=== PATIENT | male | born 1950 | race Caucasian/White ===

== ENCOUNTER 2020-11-06 13:40 | Outpatient (CLI) | payer MEDICARE, SELFPAY ==
--- NOTE | 2020-11-06 13:46 | ECHO_ITS ---
Patient Info Name: Yohannes Poole Age: 70 years : 1950 Gender: Male Ht: 72 in Wt: 210 lbs BSA: 2.22 m2 HR: 78 bpm BP: 141 / 73 mmHg Technical Quality: Fair Exam Date: 11/06/2020 2:15 PM Exam Location: [facility] Pulmonary Patient Status: Outpatient Admit Date: 11/06/2020 Staff Ordering Physician: Kirk Mcconnell PA-C Business Analytics Specialist: Brenda Sultana RDCS Attending Provider: Kirk Mcconnell PA-C Referring Physician: Jayesh CARVALHO; Exam Type: CA echo doppler color flow Study Info Indications R06.02 - Shortness of breath Complete two-dimentional, color flow and Doppler transthoracic echocardiogram is performed with agitated saline and with contrast to opacify the left ventricle and to improve the delineation of the left ventricle endocardial borders. Complete two-dimensional, color flow and Doppler transthoracic echocardiogram is performed. Summary 1. Complete two-dimensional, color flow and Doppler transthoracic echocardiogram is performed. 2. Left ventricular chamber dimension is normal. 3. Left ventricular systolic function is normal, estimated at 60-65%. 4. The left ventricular diastolic function is grade I diastolic dysfunction. 5. E/e' 7 is minimally elevated. 6. Right atrial chamber dimension is mildly enlarged. 7. There is mild aortic valve sclerosis. 8. There is trace tricuspid valve regurgitation. 9. No pulmonary hypertension, estimated pulmonary arterial systolic pressure is 29 mmHg. Left Ventricle E/e' 7 is minimally elevated. Left ventricular chamber dimension is normal. Left ventricular systolic function is normal, estimated at 60-65%. The left ventricular diastolic function is grade I diastolic dysfunction. Right Ventricle Right ventricular chamber dimension is normal. Right ventricular systolic function is normal. Left Atria Left atrial chamber dimension is normal. Right Atria Right atrial chamber dimension is mildly enlarged. Aortic Valve The aortic valve is trileaflet. There is mild aortic valve sclerosis. There is no aortic valve stenosis. There is no aortic valve regurgitation. Pulmonic Valve There is no pulmonic regurgitation. Mitral Valve There is no mitral valve stenosis. There is no mitral valve regurgitation. Tricuspid Valve There is trace tricuspid valve regurgitation. No pulmonary hypertension, estimated pulmonary arterial systolic pressure is 29 mmHg. Pericardium/Pleural There is no pericardial effusion. Inferior Vena Cava Normal inferior vena cava with >50% collapse upon inspiration consistent with normal right atrial pressure, 5 mmHg. Aorta The aortic root size at the sinus of Valsalva is normal. Left Ventricular Outflow Tract Name Value Normal LVOT 2D LVOT Diameter 2.1 cm LVOT Doppler LVOT Peak Gradient 5 mmHg LVOT Mean Gradient 3 mmHg LVOT VTI 22 cm LVOT VTI/AV VTI Ratio 1.0 LVOT Stroke Volume 75 ml LVOT CO 15.7 l/min LVOT CI
== END 2020-11-06 13:41 | disposition home or self-care (01) ==
PROVIDERS: PCP Family Medicine; Visit Provider Physician Assistant
DX: R06.02 Shortness of breath (principal); I50.22 Chronic systolic (congestive) heart failure; I11.0 Hypertensive heart disease with heart failure; E03.8 Other specified hypothyroidism; F33.1 Major depressive disorder, recurrent, moderate; R73.03 Prediabetes; I35.8 Other nonrheumatic aortic valve disorders
CPT/HCPCS: 93306

== ENCOUNTER 2021-10-03 15:17 | Emergency (ER) | payer MEDICARE, OTHER, SELFPAY ==
--- NOTE | ~2021-10-03 | XR_ITS ---
EXAMINATION: XR chest 1V portable DATE: 10/03/2021 15:38 INDICATION: Cough TECHNIQUE: frontal view of the chest was obtained. COMPARISON: Chest CT dated 07/16/2017 FINDINGS: Mild increased prominence of the bronchovascular pattern in the lower lung zone with bilateral perihi lar bronchial wall thickening which could be seen with bronchitis. No focal airspace opacities, pleur al effusion or pneumothorax. The cardiomediastinal silhouette is normal. A few old left-sided rib fra ctures. IMPRESSION: 1. Bronchial wall thickening without focal airspace opacities which could be seen with bronchitis or less likely mild pulmonary edema. Reviewed, dictated and finalized at location A. IMPRESSION: 1. Bronchial wall thickening without focal airspace opacities which could be se en with bronchitis or less likely mild pulmonary edema.
[2021-10-03 15:28] VITALS: BP 133/90; PULSE 85; RESP 18; TEMP 36.5; O2SAT 98
--- NOTE | 2021-10-03 15:28 | ECG_ITS ---
Measurements Intervals [place] Rate: 78 P: 75 NH: 222 QRS: 56 QRSD: 82 T: 59 QT: 375 QTc: 427 Interpretive Statements REDUCED DATA QUALITY WITH BASELINE ARTIFACT SINUS RHYTHM WITH FIRST DEGREE AV BLOCK WITH OCCASIONAL SUPRAVENTRICULAR PREMATURE COMPLEXES NO PREVIOUS ECG AVAILABLE FOR COMPARISON Electronically Signed On 10-03-2021 16:37:54 CDT by Tito Wall M.D.
[2021-10-03 15:59] VITALS: O2SAT 98
[2021-10-03 16:16] LABS: Basophils Absolute Auto 0.1 K/mm3 (0.0-0.1); Basophils Percent Auto 1.4 % (0.2-1.2); Eosinophils Absolute Auto 0.5 K/mm3 (0-0.3); Eosinophils Percent Auto 6.3 % (0-4.4); Hematocrit 44.9 % (42.0-52.0); Hemoglobin 15.3 g/dL (14.0-18.0); Immature Granulocyte Absolute 0.06 K/mm3 (0.00-0.031); Immature Granulocyte Percent A 0.8 % (0-0.5); Lymphocytes Absolute Auto 0.67 K/mm3 (0.9-3.2); Lymphocytes Percent Auto 8.6 % (18.3-44.2); Mean Corpuscular HGB Conc 34.1 g/dl (32-36); Mean Corpuscular Hemoglobin 37.5 pg (26-34); Mean Platelet Volume 9.9 fl (7.4-10.4); Monocytes Absolute Auto 0.7 K/mm3 (0.1-0.6); Monocytes Percent Auto 8.8 % (2.6-8.5); Neutrophils Absolute Auto 5.8 K/mm3 (1.3-6.7); Neutrophils Percent Auto 74.1 % (45.5-73.1); Platelet Count Result 212 k/mm3 (150-375); Prothrombin Time 12.3 Seconds (11.1-14.7); Red Blood Count 4.08 M/mm3 (4.6-6.20); Red Cell Distribution Width 14.3 % (11.5-14.5); White Blood Count 7.8 K/mm3 (4.5-10.0)
[2021-10-03 16:17] LABS: Partial Thromboplastin Time 21.9 SECONDS (22.3-36.8)
[2021-10-03 16:24] LABS: Alanine Aminotransferase 10 U/L (6-50); Albumin Level 4.3 g/dL (3.5-5.1); Alkaline Phosphatase 158 U/L (38-126); Anion Gap 11 mmol/L (8-16); Aspartate Amino Transferase 29 U/L (17-59); Bilirubin,Total 0.8 mg/dL (0.2-1.3); Blood Urea Nitrogen 27 mg/dL (9-20); Calcium 9.1 mg/dL (8.4-10.2); Carbon Dioxide 28 mmol/L (22-30); Chloride 97 mmol/L (98-107); Estimated CRCL calculation 59 ml/min; Estimated Glomerular Filt Rate 60; Glucose 132 mg/dL (65-110); Potassium 3.5 mmol/L (3.4-5.0); Sodium 136 mmol/L (137-145)
[2021-10-03 16:35] LABS: NT Pro B Type Natriuretic Pept 110 pg/mL (5-100); Troponin I < 0.012 ng/mL (0.000-0.034)
--- NOTE | 2021-10-03 16:38 | ED.GENADULT ---
HPI - General Adult General Chief complaint: Shortness of Breath/Dyspnea Stated complaint: SOB Time Seen by Provider: 10/03/21 15:57 History of Present Illness HPI narrative: 8-year-old male with past medical history of hypertension, gout, chronic shortness of breath presents for evaluation of worsening shortness of breath since it became hot this summer. Patient states that he will sometimes use a rescue inhaler that he borrowed from a family member. This does provide temporary relief. Today he was concerned that the inhaler would not help and therefore came to the emergency department. He denies chest pain, fever, sick contacts. Related Data Allergies Allergy/AdvReac Type Severity Reaction Status Date / Time neomycin Allergy Unknown Skin Verified 09/23/21 09:47 Reaction Review of Systems Review of Systems: CONSTITUTIONAL: Denies fever, chills, or sweats. EYES: Denies visual changes, redness, or discharge. ENT: Denies rhinorrhea, congestion, sore throat, or otalgia. CARDIOVASCULAR: Denies chest pain, palpitations, or edema. RESPIRATORY: Denies cough or dyspnea. GASTROINTESTINAL: Denies abdominal pain, nausea, vomiting, or diarrhea. GENITOURINARY: Denies dysuria or hematuria. SKIN: Denies rash or itching. MUSCULOSKELETAL: Denies back pain, joint pain, or myalgia. NEUROLOGIC: Denies headache, numbness, or weakness. PSYCHIATRIC: Denies anxiety or depression. PMFSH Past Medical History Medical History Encounter for screening colonoscopy (~2014) Surgical History Surgical History H/O hernia repair (~1998) Hx of cholecystectomy (~1995) Family History Family History Mother Family history of Alzheimer's disease Father Family history of malignant neoplasm of brain, Onset Age: 60 Other Malignant neoplasm of prostate Social History Social History Smoking status: Former smoker Alcohol intake: current Exam Narrative: GENERAL: Well-appearing, well-nourished, and in no acute distress. HEAD: Normocephalic, atraumatic. EYES: PERRLA and EOMI. ENT: Nares clear, no rhinorrhea or epistaxis. Mucous membranes moist. NECK: Supple. CHEST: expiratory wheeze in all rivera. No respiratory distress. HEART: Regular rate and rhythm. No murmur heard. Normal peripheral pulses. ABDOMEN: Soft, nontender, nondistended, normal active bowel sounds. EXTREMITIES: Normal range of motion. No edema. SKIN: Warm, dry, no rash. NEURO: No focal deficits. Alert and oriented x3. PSYCH: Normal mood and affect. Course Vital Signs Vital signs: Vital Signs Temperature 97.7 F 10/03/21 15:28 Pulse Rate 85 10/03/21 15:28 Respiratory Rate 18 10/03/21 15:28 Blood Pressure 133/90 10/03/21 15:28 Pulse Oximetry 98 10/03/21 15:28 Oxygen Delivery Nasal Cannula 10/03/21 15:28 Oxygen Flow Rate 4 10/03/21 15:28 Temperature 97.7 F 10/03/21 15:28 Pulse Rate 86 10/03/21 17:59 Respiratory Rate 23 H 10/03/21 17:59 Blood Pressure 126/82 10/03/21 17:59 Pulse Oximetry 94 10/03/21 17:59 Oxygen Delivery Room Air 10/03/21 17:59 Oxygen Flow Rate 4 10/03/21 15:59 Medical Decision Making [facility] Narrative Medical decision making narrative: 8-year-old male past medical history of hypertension and likely COPD due to smoking history throughout most of his adult life. Presents for worsening shortness of breath over the past 2 to 3 months. Expiratory wheeze noted in all rivera on arrival. EMS has reported that patient was hypoxic on arrival but he has an O2 sat in the mid to high 90s at all times in our department when there is a good waveform. Of note it is difficult to get a good waveform and patient does have a decreased O2 saturation that corresponds with poor interpretation of th
[2021-10-03 16:40] LABS: Macrocytosis 1+ (NORMAL); Platelet Estimate Adequate (Adequate)
[2021-10-03 16:41] LABS: Stomatocytes 1+ (NORMAL)
[2021-10-03] MEDS: ALBUTEROL SULFATE NEB 2.5 MG/3 ML INH 5 MG INHALATION (16:54)
[2021-10-03] MEDS: IPRATROPIUM BR 0.02% INH SOLN 0.5 MG/2.5 ML VIAL INHALATION (16:54)
[2021-10-03 16:58] VITALS: PULSE 73; RESP 18
[2021-10-03 17:01] LABS: SARS-CoV-2 RNA PCR Negative
[2021-10-03 17:08] VITALS: BP 135/80; PULSE 81; RESP 18; O2SAT 99
[2021-10-03 17:29] VITALS: PULSE 81; RESP 20
[2021-10-03 17:59] VITALS: BP 126/82; PULSE 86; RESP 23; O2SAT 94
== END 2021-10-03 18:01 | disposition home or self-care (01) ==
PROVIDERS: Emergency Medicine; Emergency Provider Emergency Medicine; PCP Family Medicine
DX: J45.901 Unspecified asthma with (acute) exacerbation (principal); Z20.822 Contact with and (suspected) exposure to COVID-19; I10 Essential (primary) hypertension; M10.9 Gout, unspecified; Z87.891 Personal history of nicotine dependence
CPT/HCPCS: 36415; 71045; 80053; 83880; 84484; 85025; 85610; 85730; 93005; 94640; 96374; 99284; C9803; J1100; U0003; U0005

== ENCOUNTER 2021-11-12 09:11 | Outpatient (CLI) | payer MEDICARE, OTHER, SELFPAY ==
--- NOTE | 2021-11-12 09:44 | ECHO_ITS ---
Patient Info Name: Yohannes Poole Age: 71 years : 1950 Gender: Male Ht: 74 in Wt: 205 lbs BSA: 2.21 m2 HR: 74 bpm BP: 129 / 80 mmHg Heart Rhythm: Sinus Rhythm Exam Date: 11/12/2021 10:20 AM Exam Location: [facility] Pulmonary Patient Status: Outpatient Admit Date: 11/12/2021 Staff Ordering Physician: Margo Camarlilo MD Anesthesia Technician: Abbi Louise RDCS Attending Provider: Margo Camarillo MD Referring Physician: Marquise CRABTREE; Exam Type: CA echo doppler color flow Study Info Indications R06.02 - Shortness of breath Complete two-dimensional, color flow and Doppler transthoracic echocardiogram is performed. Summary 1. Complete two-dimensional, color flow and Doppler transthoracic echocardiogram is performed. 2. Left ventricular chamber dimension is normal. 3. Left ventricular systolic function is normal, estimated at 65-70%. 4. There is no increased left ventricular wall thickness. 5. The left ventricular diastolic function is grade I diastolic dysfunction. 6. Right atrial chamber dimension is mildly enlarged. 7. There is no mitral valve regurgitation. 8. There is no aortic valve stenosis. Left Ventricle Left ventricular chamber dimension is normal. Left ventricular systolic function is normal, estimated at 65-70%. There is no increased left ventricular wall thickness. The left ventricular diastolic function is grade I diastolic dysfunction. Right Ventricle Right ventricular chamber dimension is normal. Right ventricular systolic function is normal. Left Atria Left atrial chamber dimension is normal. Right Atria Right atrial chamber dimension is mildly enlarged. Aortic Valve The aortic valve is not well visualized. There is no aortic valve stenosis. There is no aortic valve regurgitation. Pulmonic Valve The pulmonic valve is not well visualized. Mitral Valve The mitral valve has normal leaflets. There is no mitral valve regurgitation. Tricuspid Valve The tricuspid valve leaflets are normal. There is trace tricuspid valve regurgitation. Unable to estimate PA systolic pressure due to poor spectral resolution of tricuspid regurgitant jet velocity. Pericardium/Pleural The pericardium appears normal. There is no pericardial effusion. Inferior Vena Cava Normal inferior vena cava with >50% collapse upon inspiration consistent with normal right atrial pressure, 5 mmHg. Aorta The aortic root size at the sinus of Valsalva is normal. Left Ventricular Outflow Tract Name Value Normal LVOT 2D LVOT Diameter 2.2 cm LVOT Doppler LVOT Peak Gradient 2 mmHg LVOT Mean Gradient 1 mmHg LVOT VTI 13 cm LVOT VTI/AV VTI Ratio 0.7 LVOT Stroke Volume 47 ml LVOT CO 4.4 l/min LVOT CI 2.0 l/min/m2 Mitral Valve Name Value Normal
--- NOTE | 2021-11-13 10:26 | WPDPFTINT ---
PFT Procedure Performed PFT Procedure Performed Spirometry with Pre/Post Bronchodilator Plethysmography (Lung Vol) Diffusing Cap (DLCO) Flow Vol Loop PFT Interpretation Lung volumes were measured with the body plethysmography method. The elevated residual volume could be due to air trapping. The remaining lung volumes are unremarkable. Spirometry showed diminished expiratory flow rates and a diminished FEV1 to FVC ratio 46%, indicative of obstructive airway disease. Following administration of a bronchodilator there was significant increase in the forced vital capacity. Lung diffusion capacity is moderately reduced at 60% predicted. The flow volume loop is consistent with obstructive airway disease. Impression: Moderately severe obstructive airway disease with evidence of air trapping and significant response to bronchodilators. Moderately reduced lung diffusion capacity.
== END 2021-11-12 09:12 | disposition home or self-care (01) ==
LOC: ANHPFT 09:13
PROVIDERS: PCP Family Medicine; Visit Provider Family Medicine
DX: R06.02 Shortness of breath (principal); I25.10 Atherosclerotic heart disease of native coronary artery without angina pectoris; F10.29 Alcohol dependence with unspecified alcohol-induced disorder; R94.2 Abnormal results of pulmonary function studies; I34.0 Nonrheumatic mitral (valve) insufficiency
CPT/HCPCS: 93306; 94060; 94726; 94729

== ENCOUNTER 2021-11-13 01:00 | Day surgery (SDC) | payer MEDICARE, OTHER, SELFPAY ==
[2021-10-30 13:30] VITALS: BMI 26.4
--- NOTE | 2021-11-12 10:20 | WPDANESEPPF ---
Anes - Initial Pre Proc Eval Procedure: Operation Date: 11/13/21 09:30 Proposed Procedures p Screening Colonoscopy - Júnior Bonilla MD Date/Time: 11/12/21 10:20 Surgeon: Júnior Bonilla MD Pre Op Diagnosis: hx colon polyps Patient Data Age: 71 Gender: M Height: 1.88 m Weight: 93.5 kg Allergies Allergy/AdvReac Type Severity Reaction Status Date / Time No Known Allergies Allergy Verified 11/13/21 08:20 Home Medications Medication Instructions Recorded Confirmed Type allopurinol 100 mg tablet See Rx Instructions .Route 03/05/21 11/13/21 Rx .COMPLEX #30 tabs levothyroxine 50 mcg tablet See Rx Instructions .Route 03/17/21 11/13/21 Rx .COMPLEX #90 tabs lisinopril 10 mg tablet See Rx Instructions .Route 07/25/21 11/13/21 Rx .COMPLEX #90 tabs hydrochlorothiazide 12.5 mg tablet See Rx Instructions .Route 08/22/21 11/13/21 Rx .COMPLEX #90 tabs albuterol sulfate 90 mcg/actuation 2 inh inhalation Q6H #1 ea 10/03/21 11/13/21 Rx breath activated powder inhaler,sensor fluticasone propionate 50 1 spray intranasal DAILY #16 grams 10/03/21 11/13/21 Rx mcg/actuation nasal spray,suspension (Flonase Allergy Relief) cephalexin 500 mg capsule 500 mg PO Q8H #30 caps 10/20/21 11/13/21 Rx fluticasone fur. 200 mcg-umeclid 1 inh inhalation Q24H #60 ea 10/20/21 11/13/21 Rx 62.5 mcg-vilant 25 mcg inhalat.powder (Trelegy Ellipta) venlafaxine 150 mg See Rx Instructions .Route 10/20/21 11/13/21 Rx capsule,extended release 24 hr .COMPLEX #90 caps Patient hx anesthesia problems: none Family hx anesthesia problems: none Results Review: All pre-operative results and documents have been reviewed as part of the pre-operative evaluation. [facility] Past Medical History Medical History (Updated 11/13/21 @ 10:52 by Margo Camarillo MD) COPD (chronic obstructive pulmonary disease) Coronary artery disease Dyslipidemia Encounter for screening colonoscopy (~2014) Essential (primary) hypertension Hypothyroidism, unspecified Prediabetes Unspecified atrial fibrillation Surgical History Surgical History H/O hernia repair (~1998) Hx of cholecystectomy (~1995) Family History Family History Mother Family history of Alzheimer's disease Father Family history of malignant neoplasm of brain, Onset Age: 60 Other Malignant neoplasm of prostate Social History Social History Smoking status: Former smoker Tobacco type: cigarettes Alcohol intake: current Drinks per week: 8 Living arrangements: alone Spiritual care concerns: No Anes - Eval Final PreProcedure Day of Procedure 11/12/21 10:20 Patient weight: overweight Heart: regular rate and rhythm Lungs: clear to auscultation Airway: Mallampati scale class II Neurological: alert and oriented Last oral intake: >/= 8 hours ASA classification: III Emergent: no Anesthetic plan: proceed Anesthesia type and monitoring: general GIVS and standard monitoring Results Review: All pre-operative results and documents have been reviewed as part of the pre-operative evaluation. Informed Consent: The patient's anesthetic plan and its attendant risks and benefits were discussed with the patient/family/POA. Questions were solicited and answers provided to the satisfaction of the patient/family/POA.
[2021-11-13 08:21] VITALS: BP 111/85; PULSE 88; RESP 18; TEMP 36.3; O2SAT 95
[2021-11-13] MEDS: LACTATED RINGERS 1,000 ML 150 ML IV CONT (08:25)
--- NOTE | 2021-11-13 08:59 | PM.IMHP ---
H&P: HPI History of Present Illness Date/Time: 11/13/21 08:59 Chief Complaint: History of colon polyps. Narrative: This is a 71-year-old white male patient presents for screening colonoscopy. Patient's current weight appetite and bowel movements are normal. He denies abdominal pain. Patient has had several prior colonoscopies with colon polyps. Most recent exam 2014 was unremarkable. Patient presents today for neoplasia screening colonoscopy. Family history is noncontributory. Review of Systems Review of Systems: Review of systems noncontributory. [facility] Past Medical History Medical History (Updated 11/13/21 @ 09:01 by Júnior Bonilla MD) COPD (chronic obstructive pulmonary disease) Coronary artery disease Dyslipidemia Encounter for screening colonoscopy (~2014) Essential (primary) hypertension Hypothyroidism, unspecified Prediabetes Unspecified atrial fibrillation Surgical History Surgical History H/O hernia repair (~1998) Hx of cholecystectomy (~1995) Family History Family History Mother Family history of Alzheimer's disease Father Family history of malignant neoplasm of brain, Onset Age: 60 Other Malignant neoplasm of prostate Social History Social History Smoking status: Former smoker Tobacco type: cigarettes Alcohol intake: current Drinks per week: 8 Living arrangements: alone Spiritual care concerns: No Meds Home Medications and Allergies Home Medications Medication Instructions Recorded Confirmed Type allopurinol 100 mg tablet See Rx Instructions .Route 03/05/21 11/13/21 Rx .COMPLEX #30 tabs levothyroxine 50 mcg tablet See Rx Instructions .Route 03/17/21 11/13/21 Rx .COMPLEX #90 tabs lisinopril 10 mg tablet See Rx Instructions .Route 07/25/21 11/13/21 Rx .COMPLEX #90 tabs hydrochlorothiazide 12.5 mg tablet See Rx Instructions .Route 08/22/21 11/13/21 Rx .COMPLEX #90 tabs albuterol sulfate 90 mcg/actuation 2 inh inhalation Q6H #1 ea 10/03/21 11/13/21 Rx breath activated powder inhaler,sensor fluticasone propionate 50 1 spray intranasal DAILY #16 grams 10/03/21 11/13/21 Rx mcg/actuation nasal spray,suspension (Flonase Allergy Relief) cephalexin 500 mg capsule 500 mg PO Q8H #30 caps 10/20/21 11/13/21 Rx fluticasone fur. 200 mcg-umeclid 1 inh inhalation Q24H #60 ea 10/20/21 11/13/21 Rx 62.5 mcg-vilant 25 mcg inhalat.powder (Trelegy Ellipta) venlafaxine 150 mg See Rx Instructions .Route 10/20/21 11/13/21 Rx capsule,extended release 24 hr .COMPLEX #90 caps Allergies Allergy/AdvReac Type Severity Reaction Status Date / Time No Known Allergies Allergy Verified 11/13/21 08:20 Vital Signs Vital Signs - 24 hr 11/13/21 08:21 Temperature 97.4 F L Pulse Rate 88 Respiratory Rate 18 Blood Pressure 111/85 Pulse Oximetry 95 Oxygen Delivery Room Air Exam Narrative: Physical exam reveals patient to be alert. Vital signs stable. HEENT exam is unremarkable. Patient is anicteric. Lungs are clear to auscultation and percussion. Heart is without murmur or extra sounds. Abdomen bowel sounds are present soft nontender with no organomegaly. Digital external rectal exam is normal. Assessment and Plan Assessment and plan (1) History of colon polyps: Code(s): Z86.010 - Personal history of colonic polyps Status: Acute Assessment and Plan: Patient has a prior history of colon polyps. Plan is for surveillance colonoscopy at intervals in the future. Further recommendations will be given after endoscopy.
[2021-11-13 09:51] VITALS: BP 84/52; PULSE 74; RESP 21; O2SAT 95
[2021-11-13 10:01] VITALS: BP 104/79; PULSE 73; RESP 21; O2SAT 94
[2021-11-13 10:11] VITALS: BP 110/83; PULSE 78; RESP 20; O2SAT 95
== END 2021-11-13 10:20 | disposition home or self-care (01) ==
PROVIDERS: PCP Family Medicine; Visit Provider Internal Medicine Gastroenterology
PROC: 0DJD8ZZ Inspection of Lower Intestinal Tract, Via Natural or Artificial Opening Endoscopic (ICD-10-PCS; CPT 45378; principal; 2021-11-13 09:30)
DX: Z12.11 Encounter for screening for malignant neoplasm of colon (principal); K64.8 Other hemorrhoids; J44.9 Chronic obstructive pulmonary disease, unspecified; I25.10 Atherosclerotic heart disease of native coronary artery without angina pectoris; E78.5 Hyperlipidemia, unspecified; E03.9 Hypothyroidism, unspecified; I48.91 Unspecified atrial fibrillation; Z87.891 Personal history of nicotine dependence; Z79.52 Long term (current) use of systemic steroids
CPT/HCPCS: 45385; 88305; J2704; J7120

== ENCOUNTER → 2022-03-05 10:52 | Outpatient (CLI) | payer MEDICARE, OTHER, SELFPAY ==
--- NOTE | ~2022-03-05 | US_ITS ---
US soft tissue abdomen 03/05/2022 11:10 Indication: Palpable left breast lump for 2 years to the left of the umbilicus Procedure: High-resolution Limited ultrasound of the left anterior abdominal wall adjacent to the umb ilicus Comparison: CT dated 02/16/2022 Findings: In the area of palpable concern there is an oval circumscribed predominantly hypoechoic mas s with internal septations measuring 4.9 x 5.2 x 2.5 cm. No internal vascularity. There is mixed post erior attenuation. Impression: 1: Large 5.2 cm oval circumscribed mass anterior abdominal wall to the left of the umbilicus, most li petr benign lipoma, although further evaluation noncontrast CT abdomen and pelvis recommended for mor e complete evaluation. Reviewed, dictated and finalized at location A. [employer] Impression: 1: Large 5.2 cm oval circumscribed mass anterior abdominal wall to the left of the umbilicus, most likely benign lipoma, although further evaluation noncontra st CT abdomen and pelvis recommended for more complete evaluation.
== END ==
PROVIDERS: PCP Physician Assistant; Visit Provider Physician Assistant
DX: R19.00 Intra-abdominal and pelvic swelling, mass and lump, unspecified site (principal)
CPT/HCPCS: 76705

== ENCOUNTER → 2022-05-22 13:53 | Outpatient (CLI) | payer MEDICARE, OTHER, SELFPAY ==
--- NOTE | ~2022-05-22 | XR_ITS ---
EXAMINATION: XR chest 2V 05/22/2022 14:06 INDICATION: Shortness of breath PROCEDURE: 2 view chest COMPARISON: 10/03/2021 FINDINGS: The lungs are clear. The cardiomediastinal silhouette is within normal limits. There are no pleural effusions. There is no pneumothorax suspected. IMPRESSION: 1: NO ACUTE CARDIOPULMONARY DISEASE. Reviewed, dictated and finalized at location A.
== END ==
PROVIDERS: PCP Physician Assistant; Visit Provider Physician Assistant
DX: R06.02 Shortness of breath (principal)
CPT/HCPCS: 71046

== ENCOUNTER → 2022-07-02 09:56 | Outpatient (CLI) | payer MEDICARE, OTHER, SELFPAY ==
--- NOTE | ~2022-07-02 | CT_ITS ---
EXAMINATION: CT abdomen pelvis wo con DATE: 07/02/2022 10:17 INDICATION: Abdominal mass. TECHNIQUE: Computed tomography (CT) of the abdomen and pelvis was performed without intravenous contr ast. Automated exposure control and iterative reconstruction technique were employed. The dose-length product was 876.69 mGy-cm. COMPARISON: CT abdomen and pelvis 02/17/2012 FINDINGS: The visualized portions of the lung bases demonstrate mild atelectasis and chronic lung dis ease. No pleural effusion. The heart size is normal. No pericardial effusion. There is diffuse hepati c steatosis. There are changes of cholecystectomy. The spleen, pancreas, adrenal glands, and kidneys are normal. There is no urolithiasis. The prostate is mildly enlarged. There is a right inguinal davis ia containing fat. There are changes of left inguinal hernia repair. There are no dilated loops of rebekah wel. The appendix is normal. There is a small sliding hiatal hernia. There are no pathologically enla rged lymph nodes. There is no free intraperitoneal fluid. There is subcutaneous radiopaque foreign rebekah dy in right flank. There are umbilical and supraumbilical ventral hernias containing fat. In the post erior thorax, there are 2.1 cm and 1.2 cm subcutaneous masses, likely sebaceous cyst. There is severe lumbar spondylosis. There are old healed left rib fractures. There is a lipoma in the left gluteus m edius muscle. IMPRESSION: 1. Umbilical and supraumbilical ventral hernias containing fat. 2. Right inguinal hernia containing fat. Reviewed, dictated and finalized at location A.
== END ==
PROVIDERS: PCP Physician Assistant; Visit Provider Physician Assistant
DX: R19.00 Intra-abdominal and pelvic swelling, mass and lump, unspecified site (principal); K42.9 Umbilical hernia without obstruction or gangrene; K40.90 Unilateral inguinal hernia, without obstruction or gangrene, not specified as recurrent
CPT/HCPCS: 74176

== ENCOUNTER → 2022-09-15 11:50 | Outpatient (CLI) | payer MEDICARE, OTHER, SELFPAY ==
--- NOTE | ~2022-09-15 | XR_ITS ---
[id number] DATE: 09/15/2022 12:20 INDICATION: Lateral right mid chest pain TECHNIQUE: PA chest. 3 views of the right ribs. COMPARISON: 05/22/2022 2 view chest FINDINGS: Nipple shadows project over the chest. No pulmonary infiltrate or consolidation, pleural effusion or pulmonary vascular congestion or pneumo thorax is detected. Normal heart size. Aortic calcification and mild tortuosity. Old healed right posterior third and posterolateral right fourth old posterolateral right ninth rib f ractures are noted. There is a mildly displaced recent posterior lateral right eighth rib fracture. Degenerative changes are noted in the cervical spine, thoracic spine and particularly the lumbar spin e. There is rotatory levoscoliosis of the lumbar spine with severe multilevel degenerative disc disea se. Status post cholecystectomy. IMPRESSION: Recent mildly displaced posterolateral right eighth rib fracture line multiple old right healed rib fractures No active cardiopulmonary disease Reviewed, dictated and finalized at Location A. Reviewed, dictated and finalized at location L. IMPRESSION: Recent mildly displaced posterolateral right eighth rib fracture li ne multiple old right healed rib fractures No active cardiopulmonary disease
== END ==
PROVIDERS: PCP Family Medicine; Visit Provider Nurse Practitioner Family
DX: S22.31XA Fracture of one rib, right side, initial encounter for closed fracture (principal); T14.90XA Injury, unspecified, initial encounter
CPT/HCPCS: 71101

== ENCOUNTER 2022-12-03 13:40 | Outpatient (CLI) | payer MEDICARE, OTHER, SELFPAY ==
--- NOTE | ~2022-12-03 | CT_ITS ---
EXAMINATION:CT lung screening DATE: 12/03/2022 14:29 INDICATION: Personal history of nicotine dependence. Smoker who quit 7 years ago with 50 pack year hi story. TECHNIQUE: Computed tomography (CT) of the chest was performed without intravenous contrast. Automate d exposure control and iterative reconstruction technique were employed. The dose-length product (DLP ) was 236.04 mGy-cm. COMPARISON: Chest CT 07/16/2017 FINDINGS: There is mild emphysema. There is mild atelectasis bilaterally. There is chronic peripheral septal thickening in the inferior lungs. No pleural effusion. The heart size is normal. There are co ronary artery calcifications. No pericardial effusion. There are changes of cholecystectomy. There is severe cervical and thoracic spondylosis. IMPRESSION: 1. Lung-RADS category 1: Negative. Continue annual screening with noncontrast low-dose chest CT in 12 months. Reviewed, dictated and finalized at location E. IMPRESSION: 1. Lung-RADS category 1: Negative. Continue annual screening with noncontrast l ow-dose chest CT in 12 months.
== END 2022-12-03 13:41 | disposition home or self-care (01) ==
PROVIDERS: PCP Family Medicine; Visit Provider Physician Assistant
DX: Z12.2 Encounter for screening for malignant neoplasm of respiratory organs (principal); Z87.891 Personal history of nicotine dependence
CPT/HCPCS: 71271

== ENCOUNTER 2022-12-25 09:39 | Emergency (ER) | payer MEDICARE, OTHER, SELFPAY ==
--- NOTE | ~2022-12-25 | XR_ITS ---
EXAMINATION: XR chest 1V portable DATE: 12/25/2022 10:39 INDICATION: Shortness of breath. TECHNIQUE: A single frontal view of the chest was obtained on 2 radiographs. COMPARISON: Chest 2 views 05/22/2022, chest CT 12/03/2022 FINDINGS: There is mild atelectasis at the lung bases. No pleural effusion or pneumothorax. The heart size is normal. IMPRESSION: 1. Mild atelectasis at the lung bases. Reviewed, dictated and finalized at location E.
[2022-12-25 09:42] VITALS: BP 165/96; PULSE 97; RESP 22; TEMP 36.8; O2SAT 97
[2022-12-25 10:22] VITALS: PULSE 86; RESP 33
[2022-12-25] MEDS: ALBUTEROL SULFATE NEB 2.5 MG/3 ML INH INHALATION (10:22)
[2022-12-25] MEDS: IPRATROPIUM BR 0.02% INH SOLN 0.5 MG/2.5 ML VIAL INHALATION (10:22)
[2022-12-25 10:32] VITALS: BP 126/80; PULSE 84; PULSE 86; RESP 15; O2SAT 99
--- NOTE | 2022-12-25 10:33 | ED.SOB ---
HPI - SOB/Dyspnea General Chief Complaint: Shortness of Breath/Dyspnea Stated Complaint: shortness Time Seen by Provider: 12/25/22 09:47 Source: patient Mode of arrival: ambulatory Limitations: no limitations History of Present Illness HPI Narrative: This is a 72-year-old male that presents to the emergency department for dyspnea ongoing over the last week. Reports history of COPD. Reports he has been having trouble with wheezing. He has been taking his inhaler with little relief. Reports productive cough. Denies fevers, lower extremity edema or chest pain. Related Data Allergies Allergy/AdvReac Type Severity Reaction Status Date / Time No Known Allergies Allergy Verified 11/27/22 12:58 Review of Systems Review of Systems: CONSTITUTIONAL: Denies fever CARDIOVASCULAR: Denies chest pain, palpitations, or edema. RESPIRATORY: Reports cough and dyspnea. All systems reviewed & are unremarkable except as noted in HPI and below PMFSH Past Medical History Medical History COPD (chronic obstructive pulmonary disease) Coronary artery disease Dyslipidemia Encounter for screening colonoscopy (~2014) Essential (primary) hypertension Hypothyroidism, unspecified Prediabetes Unspecified atrial fibrillation Surgical History Surgical History H/O hernia repair (~1998) Hx of cholecystectomy (~1995) Family History Family History Mother Family history of Alzheimer's disease Father Family history of malignant neoplasm of brain, Onset Age: 60 Other Malignant neoplasm of prostate Social History Social History (Updated 11/27/22 @ 13:00 by Aguilar Bryant MA) Smoking status: Former smoker Tobacco type: cigarettes Alcohol intake: current Drinks per week: 8 Lack of Transportation: No Lack of Food: Never True Current Housing: I Have Housing Concerned About Future Housing: No Difficulty Paying Gas/Electric Bills: No Difficulty Paying for Meds: No Currently Unemployed: No Education: High School Diploma/GED Difficulty w/ Childcare or Family Care: No Living arrangements: alone Spiritual care concerns: No Exam Narrative: GENERAL: Well-appearing, well-nourished, and in no acute distress. HEAD: Normocephalic, atraumatic. EYES: EOMI. ENT: Nares clear, no rhinorrhea or epistaxis. Mucous membranes moist. Oropharynx without tonsillar hypertrophy exudate or other lesions. NECK: Supple. No JVD CHEST: No respiratory distress. Lung sounds diminished with diffuse expiratory wheezing. No rales or rhonchi HEART: Regular rate and rhythm. No murmur heard. Normal peripheral pulses. EXTREMITIES: Normal range of motion. No edema. SKIN: Warm, dry, no rash. NEURO: No focal deficits. Alert and oriented x3. PSYCH: Normal mood and affect Course Course Emergency Course: Patient reports feeling much better after nebulizer treatment and steroids. Lungs are now clear. Reports he is ready for discharge Vital Signs Vital signs: Vital Signs Temperature 98.2 F 12/25/22 09:42 Pulse Rate 97 12/25/22 09:42 Respiratory Rate 22 H 12/25/22 09:42 Blood Pressure 165/96 H 12/25/22 09:42 Pulse Oximetry 97 12/25/22 09:42 Oxygen Delivery Room Air 12/25/22 09:42 Temperature 98.2 F 12/25/22 09:42 Pulse Rate 84 12/25/22 10:32 Respiratory Rate 15 12/25/22 10:32 Blood Pressure 165/96 H 12/25/22 09:42 Pulse Oximetry 97 12/25/22 09:42 Oxygen Delivery Room Air 12/25/22 10:24 MDM - SOB/Dyspnea MDM Narrative Medical decision making narrative: Patient presents to the emergency department for shortness of breath and wheezing. Ongoing over the last week. Patient is afebrile and nontoxic-appearing. Lung sounds diminished with diffuse wheezing on arrival. Oxygen saturation on room air. Metabolic panel
[2022-12-25 10:56] LABS: Basophils Absolute Auto 0.1 K/mm3 (0.0-0.1); Basophils Percent Auto 0.9 % (0.2-1.2); Eosinophils Absolute Auto 0.2 K/mm3 (0-0.3); Eosinophils Percent Auto 3.6 % (0-4.4); Hematocrit 43.1 % (42.0-52.0); Hemoglobin 14.6 g/dL (14.0-18.0); Immature Granulocyte Absolute 0.04 K/mm3 (0.00-0.031); Immature Granulocyte Percent A 0.7 % (0-0.5); Lymphocytes Percent Auto 10.2 % (18.3-44.2); Mean Corpuscular HGB Conc 33.9 g/dl (32-36); Mean Corpuscular Hemoglobin 38.9 pg (26-34); Mean Corpuscular Volume 114.9 fl (80-100); Mean Platelet Volume 9.8 fl (7.4-10.4); Monocytes Absolute Auto 0.5 K/mm3 (0.1-0.6); Monocytes Percent Auto 8.9 % (2.6-8.5); Neutrophils Absolute Auto 4.5 K/mm3 (1.3-6.7); Neutrophils Percent Auto 75.7 % (45.5-73.1); Platelet Count Result 152 k/mm3 (150-375); Red Blood Count 3.75 M/mm3 (4.6-6.20); Red Cell Distribution Width 15.6 % (11.5-14.5); White Blood Count 5.9 K/mm3 (4.5-10.0)
[2022-12-25] MEDS: methylPREDNISolone SOD SUCC 125 MG VIAL IV PUSH (11:03)
[2022-12-25 11:06] LABS: Alanine Aminotransferase 16 U/L (6-50); Albumin Level 3.9 g/dL (3.5-5.1); Alkaline Phosphatase 143 U/L (38-126); Anion Gap 7 mmol/L (8-16); Aspartate Amino Transferase 34 U/L (17-59); Bilirubin,Total 1.4 mg/dL (0.2-1.3); Blood Urea Nitrogen 14 mg/dL (9-20); Calcium 9.1 mg/dL (8.4-10.2); Carbon Dioxide 27 mmol/L (22-30); Chloride 102 mmol/L (98-107); Estimated CRCL calculation 72 ml/min; Estimated Glomerular Filt Rate > 60; Glucose 125 mg/dL (65-110); Potassium 3.8 mmol/L (3.4-5.0); Sodium 136 mmol/L (137-145)
[2022-12-25 11:07] LABS: INR 0.9; Prothrombin Time 12.5 Seconds (11.1-14.7)
[2022-12-25 11:08] LABS: Partial Thromboplastin Time 35.9 SECONDS (22.3-36.8)
[2022-12-25 11:29] VITALS: BP 124/68; PULSE 80; RESP 18; O2SAT 92
[2022-12-25 12:00] VITALS: BP 122/72; PULSE 75; RESP 20; TEMP 36.4; O2SAT 95
[2022-12-25 12:42] VITALS: TEMP 36.4
== END 2022-12-25 12:44 | disposition home or self-care (01) ==
PROVIDERS: Emergency Provider Physician Assistant; PCP Family Medicine
DX: J44.1 Chronic obstructive pulmonary disease with (acute) exacerbation (principal); I25.10 Atherosclerotic heart disease of native coronary artery without angina pectoris; E78.5 Hyperlipidemia, unspecified; I10 Essential (primary) hypertension; E03.9 Hypothyroidism, unspecified; I48.91 Unspecified atrial fibrillation; Z87.891 Personal history of nicotine dependence
CPT/HCPCS: 36415; 71045; 80053; 85025; 85610; 85730; 93005; 94640; 96374; 99284; J2930

== ENCOUNTER 2023-03-31 12:27 | Outpatient (CLI) | payer MEDICARE, OTHER, SELFPAY ==
--- NOTE | 2023-03-31 16:37 | WPDSIXMINUTE ---
Six Minute Walk Procedure Procedure Performed Pulmonary Stress Test (6 min walk) Six Minute Walk Six Minute Walk: This is a 6 minute walk test. The test was performed and interpreted in accordance with the 2014 ERS/ATS task force guidelines. Findings: The patient's resting room air oxygen saturation measured by pulse oximetry was 94% and heart rate was 80 bpm. Patient ambulated for 244 meters and oxygen saturation remained 96 to 10%. Heart rate at the end of the study was 99 bpm. The patient did not qualify for supplemental oxygen at rest or with ambulation. There are no prior studies for comparison.
== END 2023-03-31 12:28 | disposition home or self-care (01) ==
PROVIDERS: PCP Family Medicine; Visit Provider Internal Medicine Pulmonary Disease
DX: Z87.891 Personal history of nicotine dependence (principal)
CPT/HCPCS: 94618

== ENCOUNTER 2023-12-10 14:49 | Outpatient (CLI) | payer MEDICARE, OTHER, SELFPAY ==
--- NOTE | ~2023-12-10 | CT_ITS ---
EXAMINATION:CT lung screening DATE: 12/10/2023 15:09 INDICATION: Personal history of nicotine dependence. Smoker who quit 7 years ago with 100 pack year h istory. TECHNIQUE: Computed tomography (CT) of the chest was performed without intravenous contrast. Automate d exposure control and iterative reconstruction technique were employed. The dose-length product (DLP ) was 192.48 mGy-cm. COMPARISON: Chest CT 12/03/2022 FINDINGS: There is moderate emphysema. There is chronic peripheral septal thickening in the inferior lungs. There is mild atelectasis bilaterally. No pleural effusion. The heart size is normal. There ar e coronary artery calcifications. No pericardial effusion. There is a small sliding hiatal hernia. Th ere is diffuse hepatic steatosis. There is severe thoracic spondylosis. There is a burst fracture of T12 with 2/5 loss of height, likely subacute. IMPRESSION: 1. Lung-RADS category 1: Negative. Continue annual screening with noncontrast low-dose chest CT in 12 months. Reviewed, dictated and finalized at location A. IMPRESSION: 1. Lung-RADS category 1: Negative. Continue annual screening with noncontrast l ow-dose chest CT in 12 months.
== END 2023-12-10 14:50 | disposition home or self-care (01) ==
LOC: ANHIMG 14:53
PROVIDERS: PCP Family Medicine; Visit Provider Physician Assistant
DX: Z12.2 Encounter for screening for malignant neoplasm of respiratory organs (principal); Z87.891 Personal history of nicotine dependence
CPT/HCPCS: 71271

== ENCOUNTER 2024-02-01 09:41 | Outpatient (RCR) | payer MEDICARE, OTHER, SELFPAY ==
--- NOTE | 2024-02-01 10:46 | PTOPEVDC ---
Assessment and note entered by Alireza Cunningham, PT Thank you for referring Yohannes Poole to [facility] [place].? An evaluation has been completed. No further treatment is needed. Evaluation Information Assessment Status Evaluation Diagnosis Left Foot drop ICD-10 Condition Codes (PT) Weakness R53.1 Onset 5 years ago Subjective Information Reports that he has had progressive foot drop for about 4 or 5 years. 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 Has a history of receiving injections to help with the issue. Reports that he is in therapy for AFO fitting per MD recommendation. Would like to wear boot with it if he can. Reported Pain Level Pain Score 0: Self Report Assessment PT Clinical Summary Patient demonstrated understating of proper fitting and use of AFO. Was difficult to fit with the boot of his choice but easily donned and doffed in tennis shoe. Patient reflects understanding at this time. No goal needed for 1 time visit. Plan of Care PT Services Indicated No Treatment Frequency and Single visit for Orthotic fitting and education Duration
== END 2024-02-01 10:58 | disposition home or self-care (01) ==
LOC: ANHGOSHPT 09:41
PROVIDERS: PCP Family Medicine; Visit Provider Family Medicine
DX: M21.372 Foot drop, left foot (principal)
CPT/HCPCS: 97116; 97161; 97760